=== PATIENT | female | born 1950 | race Caucasian/White ===

== ENCOUNTER 2022-09-02 15:46 | Outpatient (REF) | payer MEDICARE, SELFPAY | END 2022-09-02 15:47 | disposition home or self-care (01) | LOC: LBN 15:46 | PROVIDERS: Visit Provider Physician Assistant | DX: L98.8 Other specified disorders of the skin and subcutaneous tissue (principal); L02.213 Cutaneous abscess of chest wall | CPT/HCPCS: 87070; 87205 ==